=== PATIENT | female | born 1975 | race Caucasian/White ===

== ENCOUNTER → 2019-09-22 | Outpatient (CLI) | payer SELFPAY ==
[~2019-09-22] MED LIST: ACHD5005 PO; BARIUM for suspension 96% w/w (Vanilla Silq Medium Density) PO ONE; BARIUM for suspension 98% w/w (Vanilla Silq High Density) PO ONE; DCS100C PO; FRS325T PO; IBP600T1 PO
--- NOTE | 2019-09-22 11:45 | Diagnostic Imaging Report ---
Upper gastrointestinal exam. Indication: Abdominal pain, dysphagia. There are no prior upper gastrointestinal examinations available for comparison. 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 Surgical clips are also evident in the right upper quadrant consistent with prior cholecystectomy. Double contrast exam was performed. The patient swallowed the contrast material without difficulty. There is no delay or obstruction past the contrast through the esophagus. There is no sign of stricture or of a hiatal hernia. There is no gastroesophageal reflux identified either. The stomach shows good distensibility and motility. There is no mass or ulceration evident. On a few of the images there is a small collection of barium in the gastric body. This does not persist on all the images and consequently is more likely due to a small collection of barium trapped in the gastric folds than to ulcer formation.. The duodenal bulb and proximal small bowel are unremarkable. Impression: 1. There is no evidence for a hiatal hernia or for gastroesophageal reflux. 2. The stomach is unremarkable for a gastric mass or ulceration. 2. The duodenal bulb and proximal small bowel are within normal limits. Dictated by: Dictated on workstation # [id number]
== END ==
LOC: RAD 09:56
PROVIDERS: ATTEND Plastic Surgery Plastic Surgery Within the Head and Neck
DX: K21.9 Gastro-esophageal reflux disease without esophagitis (principal)
CPT/HCPCS: 74246